=== PATIENT | male | born 1985 | race Caucasian/White ===

== ENCOUNTER 2022-06-12 18:49 | Emergency (ER) | payer BC, SELFPAY ==
[2022-06-12 19:04] VITALS: BP 201/112; PULSE 94; RESP 16; TEMP 37.2; O2SAT 97
--- NOTE | 2022-06-12 19:10 | ED.MALEGU ---
HPI - Male Genitourinary General Chief complaint: Urogenital-Male Stated complaint: Urinary Problem Source: patient and RN notes reviewed History of Present Illness HPI Narrative: 37-year-old male presents urgent care with complaints of dysuria penile discharge since Saturday. Patient states he was tested gonorrhea, chlamydia, and hepatitis at [facility] has had negative results, proven on his cellphone. Patient reports having unprotected sex with 1 sexual partner. Patient denies any fevers, chills, rash, blisters, abdominal pain, or vomiting. Patient also noted to be hypertensive in clinic. Patient states he has been hypertensive for a long time and no longer takes medication. Patient denies any chest pain, shortness of breath headache, dizziness, or blurry vision. Related Data Allergies Allergy/AdvReac Type Severity Reaction Status Date / Time No Known Allergies Allergy Unverified 11/20/16 13:49 Review of Systems Review of Systems: CONSTITUTIONAL: Denies fever, chills, or sweats. EYES: Denies visual changes, redness, or discharge. ENT: Denies otalgia and sore throat CARDIOVASCULAR: Denies chest pain, palpitations, or edema. RESPIRATORY: Denies cough or dyspnea. GASTROINTESTINAL: Denies abdominal pain, nausea, vomiting, or diarrhea. GENITOURINARY: Reports penile discharge and dysuria SKIN: Denies rash or itching. MUSCULOSKELETAL: Denies back pain, joint pain, or myalgia. NEUROLOGIC: Denies headache, numbness, or weakness. PMFSH Comments At the time of my signature, I reviewed and agree with the nursing past medical, surgical, social, and family history. There is no relevant family history pertinent to the patient complaint. Exam Narrative: GENERAL: This is a well-nourished, well-developed patient, in no apparent distress. HEAD: normocephalic, atraumatic. EYES: Sclera clear/white. Vision is grossly intact. EARS: External ears normal. NOSE: External nose normal with no obvious nasal discharge, nares without redness, no rhinorrhea. THROAT: Mucous membranes moist, posterior pharynx clear. NECK: Neck supple, non-tender without lymphadenopathy, masses or thyromegaly. CARDIOVASCULAR: Regular rate. RESPIRATORY: No respiratory distress. SKIN: warm, intact with no suspicious lesions or rash, good texture and turgor. NEURO: awake, alert, and oriented to person, place and time. There were no obvious focal neurologic abnormalities. Course Course Level of Care: Express Care Visit Vital Signs Vital signs: Vital Signs Temperature 99 F 06/12/22 19:04 Pulse Rate 94 06/12/22 19:04 Respiratory Rate 16 06/12/22 19:04 Blood Pressure 201/112 H 06/12/22 19:04 Pulse Oximetry 97 06/12/22 19:04 Oxygen Delivery Room Air 06/12/22 19:04 Temperature 99 F 06/12/22 19:04 Pulse Rate 94 06/12/22 19:04 Respiratory Rate 16 06/12/22 19:04 Blood Pressure 201/112 H 06/12/22 19:04 Pulse Oximetry 97 06/12/22 19:04 Oxygen Delivery Room Air 06/12/22 19:04 Reviewed. Patient is informed that they may have pre-hypertension or hypertension based on a blood pressure reading in the department. I recommend the patient call the primary care provider listed on their discharge instructions or a physician of their choice this week to arrange follow-up for further evaluation of possible pre-hypertension or hypertension. MDM - Male Genitourinary MDM Narrative Medical decision making narrative: You are being treated for possible Trichomonas. A urine culture has been sent off and we will know results in approximately 1 week. We will call you with any positive results. If your symtoms do not resolve after treatment, you need to follow up with a urologist. Have your sexual partner tested and treated if needed. Please follow up with a spray painter helper in 2-5 days, regarding your high blood pressure. Take the medications as directed. Go to the emergency dept with any new or worsening symptoms. Differential Diagnosis Differen
== END 2022-06-12 19:36 | disposition home or self-care (01) ==
PROVIDERS: Emergency Provider Nurse Practitioner Family; PCP Family Medicine
DX: R30.0 Dysuria (principal); I10 Essential (primary) hypertension; Z11.3 Encounter for screening for infections with a predominantly sexual mode of transmission
CPT/HCPCS: 81003; 87086; 87661; 99213; G0463

== ENCOUNTER 2022-06-26 17:57 | Emergency (ER) | payer BC, SELFPAY ==
[2022-06-26 18:06] VITALS: PULSE 112; RESP 16; TEMP 36.5; O2SAT 98
[2022-06-26 18:18] VITALS: BP 170/120
--- NOTE | 2022-06-26 18:37 | ED.URI ---
HPI - URI/Sore Throat General Chief Complaint: Upper Respiratory Infection Stated Complaint: Sore Throat Source: patient and RN notes reviewed History of Present Illness HPI Narrative: 37-year-old male presents to urgent care with complaints of a sore throat times 4 days. Patient denies any fevers, chills, ear pain, congestion, cough. Patient also should be hypertensive and department and was given and amlodipine prescription recently on his last visit. Patient admits to not taking his prescription daily because he forgets. Patient continues to deny any chest pain, shortness of breath, blurry vision, dizziness, or headache. Patient states he does have an appointment with a primary care physician next week. Some parts of this dictation were generated by voice recognition software and may contain typographical and/or grammatical inaccuracies. Related Data Allergies Allergy/AdvReac Type Severity Reaction Status Date / Time No Known Allergies Allergy Unverified 11/20/16 13:49 Review of Systems Review of Systems: CONSTITUTIONAL: Denies fever, chills, or sweats. EYES: Denies visual changes, redness, or discharge. ENT: sore throat CARDIOVASCULAR: Denies chest pain, palpitations, or edema. RESPIRATORY: Denies cough or dyspnea. GASTROINTESTINAL: Denies abdominal pain, nausea, vomiting, or diarrhea. GENITOURINARY: Denies dysuria or hematuria. SKIN: Denies rash or itching. MUSCULOSKELETAL: Denies back pain, joint pain, or myalgia. NEUROLOGIC: Denies headache, numbness, or weakness. PMFSH Comments At the time of my signature, I reviewed and agree with the nursing past medical, surgical, social, and family history. There is no relevant family history pertinent to the patient complaint. Exam Narrative: GENERAL: This is a well-nourished, well-developed patient, in no apparent distress. HEAD: normocephalic, atraumatic. EYES: PERRL. Sclera clear/white. Vision is grossly intact. EARS: External ears normal, auditory canals clear and without drainage, TMs normal without perforation. Hearing grossly intact. NOSE: External nose normal with no obvious nasal discharge, nares without redness, no rhinorrhea. THROAT: Mucous membranes moist, posterior pharynx erythemic. Tonsils are 2+ bilaterally with exudate noted. NECK: Neck supple, non-tender without lymphadenopathy, masses or thyromegaly. CARDIOVASCULAR: Regular rate and rhythm without murmurs, gallops, or rubs. RESPIRATORY: Clear to auscultation. Breath sounds equal bilaterally. No wheezes, rales, or rhonchi. GASTROINTESTINAL: Abdomen soft, non-tender, nondistended. Bowel sounds are active. No hepato-splenomegaly, or palpable masses. No guarding. SKIN: warm, intact with no suspicious lesions or rash, good texture and turgor. NEURO: awake, alert, and oriented to person, place and time. There were no obvious focal neurologic abnormalities. Course Course Level of Care: Express Care Visit Vital Signs Vital signs: Vital Signs Temperature 97.7 F 06/26/22 18:06 Pulse Rate 112 H 06/26/22 18:06 Respiratory Rate 16 06/26/22 18:06 Pulse Oximetry 98 06/26/22 18:06 Oxygen Delivery Room Air 06/26/22 18:06 Temperature 97.7 F 06/26/22 18:06 Pulse Rate 112 H 06/26/22 18:06 Respiratory Rate 16 06/26/22 18:06 Blood Pressure 170/120 H 06/26/22 18:18 Pulse Oximetry 98 06/26/22 18:06 Oxygen Delivery Room Air 06/26/22 18:06 Reviewed. Patient is informed that they may have pre-hypertension or hypertension based on a blood pressure reading in the department. I recommend the patient call the primary care provider listed on their discharge instructions or a physician of their choice this week to arrange follow-up for further evaluation of possible pre-hypertension or hypertension. MDM - URI/Sore Throat MDM Narrative Medical decision making narrative: After 24 hours on antibiotics throw tooth brush away and start using a new one. Do not share drinks. Take Motrin alte
== END 2022-06-26 18:48 | disposition home or self-care (01) ==
PROVIDERS: Emergency Provider Nurse Practitioner Family
DX: J02.0 Streptococcal pharyngitis (principal); I10 Essential (primary) hypertension
CPT/HCPCS: 87880; 99213; G0463